=== PATIENT | female | born 1980 | race Caucasian/White ===

== ENCOUNTER 2022-07-18 09:19 | Emergency (ER) | payer MEDICAID ==
[~2022-07-18] VITALS: Ht 170.2 cm; Wt 89.4 kg
[2022-07-18 09:30] VITALS: BP_SYST 122
--- NOTE | 2022-07-18 09:40 | NUR ---
Patient to ER bed 5 to gown for evaluation. Side rails up. Report given to TELLY ESCAMILLA.
--- NOTE | 2022-07-18 09:45 | NUR ---
PT CAME IN FROM HOME C/O LOWER BACK PAIN AFTER USING THE TOILET. PT STATES THAT SHE IS SUPPOSED TO HAVE SURGERY BUT HAS NOT BEEN ABLE TO. PT IS AMBULATORY, AOX4, VSS
--- NOTE | 2022-07-18 10:02 | NUR ---
ER DR. MENJIVAR EXAMINING PT AT THE BEDSIDE
[2022-07-18] MEDS ORDERED: DIAZEPAM 5 MG TABLET (VALIUM) PO ONE (10:15)
[2022-07-18] MEDS ORDERED: KETOROLAC TROMETHAMINE 60 MG/2 ML VIAL IM ONE (10:15)
--- NOTE | 2022-07-18 11:15 | NUR ---
REPORT GIVEN TO ANDI MILNER AND ANDI GANDHI FOR CONTINUING CARE
[2022-07-18] MEDS ORDERED: NAPR-688 PO (11:27)
[2022-07-18] MEDS ORDERED: VAL2 PO (11:27)
--- NOTE | 2022-07-18 11:33 | NUR ---
Patient given written and verbal discharge instructions and verbalizes understanding. ER MD discussed with patient the results and treatment provided. Patient in stable condition. ID arm band removed. Rx of Valium and Naproxen given. Patient educated on pain management and to follow up with PMD. Opportunity for questions provided and answered. Medication side effect fact sheet provided.
[2022-07-18 11:58] VITALS: BP_SYST 122
== END 2022-07-18 11:58 | disposition home or self-care (01) ==
LOC: SED 09:19
DX: S39.012A Strain of muscle, fascia and tendon of lower back, initial encounter (principal); Z79.899 Other long term (current) drug therapy; X58.XXXA Exposure to other specified factors, initial encounter; Y93.89 Activity, other specified; Y92.89 Other specified places as the place of occurrence of the external cause; Y99.8 Other external cause status
CPT/HCPCS: 99283; 96372; J1885

== ENCOUNTER 2022-07-26 12:12 | Emergency (ER) | payer MEDICAID ==
[~2022-07-26] VITALS: Ht 172.7 cm; Wt 88.5 kg
[~2022-07-26 12:12] MED LIST: NAPR-688 PO; VAL2 PO
[2022-07-26 12:15] VITALS: BP_SYST 140
--- NOTE | 2022-07-26 12:15 | NUR ---
Patient triaged and placed in waiting room. VSS and patient appears in no acute distress at this time. Accompanied by FAMILY, awaiting available bed, and MD notified of need for MSE.
--- NOTE | 2022-07-26 12:30 | NUR ---
PT STATES SHE HAS CHRONIC BACK ISSUES AND NOW PAIN HAS BECOME UNBEARABLE. PT WAS HERE ON 07/18 FOR SAME. PT STATES INCREASED PAIN WITH ANY MOVEMENTS
--- NOTE | 2022-07-26 12:46 | NUR ---
BROUGHT BACK TO BED #5 AND WILL ASSUME CARE
--- NOTE | 2022-07-26 13:18 | NUR ---
REPORT GIVEN TO MIRIAN TO ASSUME CARE
--- NOTE | 2022-07-26 13:40 | NUR ---
Patient reports back pain 10 years ago. Patient fell off ladder "a few days ago" and she was decorating her nephew's libertarian. Patient explained that ladder was 6 feet tall two weeks ago. Patient denies losing consciousness but patient got up. Patient took three aleve that day for back pain. Patient took pain medication muscle relaxer valium for nerves. Patient has high BP, pre-ecclampsia when she was .
[2022-07-26] MEDS ORDERED: KETOROLAC TROMETHAMINE 30 MG VIAL IM ONE (14:15)
--- NOTE | 2022-07-26 15:14 | NUR ---
Patient went to scan and came back. No distress noted.
[2022-07-26 15:24] LABS: BILIRUBIN,URINE NEGATIVE (NEGATIVE); BLOOD, URINE NEGATIVE (NEGATIVE); CLARITY/URINE CLEAR (CLEAR); COLOR,URINE YELLOW (YELLOW); GLUCOSE,URINE NEGATIVE (NEGATIVE); KETONES,URINE NEGATIVE (NEGATIVE); LEUKOCYTE ESTERASE ,URINE 1+ (NEGATIVE); NITRITE, URINE NEGATIVE (NEGATIVE); PROTEIN URINE NEGATIVE (NEGATIVE); UROBILINOGEN,URINE 0.2 (0.2-1.0)
[2022-07-26] MEDS ORDERED: SOM350 PO (15:37)
[2022-07-26] MEDS ORDERED: IBUP-1969 PO (15:37)
[2022-07-26 15:47] LABS: BACTERIA,URINE RARE /HPF (None Seen)
[2022-07-26 15:48] LABS: MUCUS,URINE None Seen /LPF (None Seen); RBC,URINE NONE SEEN /HPF (0-3)
[2022-07-26 16:27] VITALS: BP_SYST 120
--- NOTE | 2022-07-26 16:31 | NUR ---
Patient given written and verbal discharge instructions and verbalizes understanding. ER MD discussed with patient the results and treatment provided. Patient in stable condition. ID arm band removed. IV catheter removed intact and dressing applied, no active bleeding. Rx of soma given. Patient educated on pain management and to follow up with PMD. Pain Scale . Opportunity for questions provided and answered. Medication side effect fact sheet provided.
== END 2022-07-26 16:31 | disposition home or self-care (01) ==
LOC: SED 12:12
DX: M54.50 Low back pain, unspecified (principal); G89.29 Other chronic pain; I10 Essential (primary) hypertension; Z79.899 Other long term (current) drug therapy
CPT/HCPCS: 99285; 81000; 93005; 72100; 81025; 96372; J1885

== ENCOUNTER 2022-07-29 08:47 | Emergency (ER) | payer MEDICAID ==
[~2022-07-29] VITALS: Ht 172.7 cm; Wt 87.1 kg
[~2022-07-29 08:47] MED LIST changes: +IBUP-1969 PO; +SOM350 PO
[2022-07-29 08:58] VITALS: BP_SYST 147
--- NOTE | 2022-07-29 09:20 | NUR ---
Pt brought by self ,A&Ox4, pt presents to ER with cough and congestion, VSS, pt requesting a Z-pack, afebrile, respirations even and unlabored, will cont to monitor.
--- NOTE | 2022-07-29 09:28 | NUR ---
Dr Reese evaluating patient in the triage room
[2022-07-29] MEDS ORDERED: ZIT250 PO (09:33)
[2022-07-29 09:45] VITALS: BP_SYST 142
--- NOTE | 2022-07-29 09:46 | NUR ---
Patient given written and verbal discharge instructions and verbalizes understanding. ER MD discussed with patient the results and treatment provided. Patient in stable condition. ID arm band removed. Rx of Zithromax given. Patient educated on pain management and to follow up with PMD. Pain Scale 2/10 Opportunity for questions provided and answered. Medication side effect fact sheet provided.
== END 2022-07-29 09:46 | disposition home or self-care (01) ==
LOC: SED 08:47
DX: J40 Bronchitis, not specified as acute or chronic (principal); R05.9 Cough, unspecified; Z79.899 Other long term (current) drug therapy
CPT/HCPCS: 99283

== ENCOUNTER 2022-09-05 08:34 | Emergency (ER) | payer MEDICAID ==
[~2022-09-05] VITALS: Ht 170.2 cm; Wt 81.6 kg
[~2022-09-05 08:34] MED LIST changes: +ZIT250 PO
[2022-09-05 08:42] VITALS: BP_SYST 121
--- NOTE | 2022-09-05 08:42 | NUR ---
Patient triaged and placed in waiting room. VSS and patient appears in no acute distress at this time. Accompanied by SELF, awaiting available bed, and MD notified of need for MSE.
--- NOTE | 2022-09-05 08:45 | NUR ---
ER DR. MENJIVAR EXAMINING PT IN TRIAGE
[2022-09-05] MEDS ORDERED: PRO20 PO (08:56)
[2022-09-05] MEDS ORDERED: VAL2 PO ×2 (08:56→09:01)
[2022-09-05 09:06] VITALS: BP_SYST 121
--- NOTE | 2022-09-05 09:06 | NUR ---
Patient given written and verbal discharge instructions and verbalizes understanding. ER MD discussed with patient the results and treatment provided. Patient in stable condition. ID arm band removed. Rx of PROZAC AND VALIUM given. Patient educated on pain management and to follow up with PMD. Pain Scale 0/10. Opportunity for questions provided and answered. Medication side effect fact sheet provided.
== END 2022-09-05 08:45 | disposition home or self-care (01) ==
LOC: SED 08:34
DX: F32.A Depression, unspecified (principal); F41.9 Anxiety disorder, unspecified; Z79.899 Other long term (current) drug therapy
CPT/HCPCS: 99283

== ENCOUNTER 2022-10-26 08:16 | Emergency (ER) | payer MEDICAID ==
[~2022-10-26] VITALS: Ht 172.7 cm; Wt 90.7 kg
[~2022-10-26 08:16] MED LIST changes: +PRO20 PO
[2022-10-26 08:27] VITALS: BP_SYST 136
[2022-10-26] MEDS ORDERED: ZIT250 PO (09:10)
[2022-10-26] MEDS ORDERED: PRED20TA PO (09:10)
[2022-10-26] MEDS ORDERED: AMLO5TAB4 PO (09:10)
== END 2022-10-26 09:33 | disposition home or self-care (01) ==
LOC: SED 08:16
DX: J40 Bronchitis, not specified as acute or chronic (principal); R05.9 Cough, unspecified; I10 Essential (primary) hypertension; Z79.899 Other long term (current) drug therapy
CPT/HCPCS: 71045; 99283

== ENCOUNTER 2023-07-17 09:44 | Emergency (ER) | payer OTHER, MEDICAID ==
[~2023-07-17] VITALS: Ht 170.2 cm; Wt 84.8 kg
[~2023-07-17 09:44] MED LIST changes: +AMLO5TAB4 PO; +PRED20TA PO
[2023-07-17] MEDS ORDERED: SUMA25TA10 PO ×2 (09:53→12:12)
[2023-07-17 09:55] VITALS: BP_SYST 129; PULSE 81; RESP 18; TEMP 97.8; O2SAT 97
[2023-07-17] MEDS ORDERED: KETOROLAC TROMETHAMINE 60 MG/2 ML VIAL IM ONE (10:30)
[2023-07-17 11:20] LABS: BARBITURATE, URINE NEGATIVE (NEG <=200); BENZODIAZEPINE, URINE POSITIVE (NEG <=150); CANNABINOID, URINE NEGATIVE (NEG <=50); COCAINE, URINE NEGATIVE (NEG <=150); METHAMPHETAMINES SCREEN,URINE NEGATIVE (NEG <=500); OPIATE, URINE NEGATIVE (NEG <=100); PHENCYCLIDINE SCREEN,URINE NEGATIVE (NEG <=25); URINE AMPHETAMINE NEGATIVE (NEG <=500); URINE METHADONE NEGATIVE (NEG <=200); URINE OXYCODONE SCREEN NEGATIVE (NEG <=100); URINE PROPOXYPHENE SCREEN NEGATIVE (NEG <=300)
[2023-07-17 11:21] LABS: UR TRICYCLIC ANTIDEPRESSANTS NEGATIVE (NEG <=300)
[2023-07-17] MEDS ORDERED: SUMAtriptan SUCCINATE 6 MG/0.5 ML VIAL SUBCUT ONE (12:00)
[2023-07-17] MEDS ORDERED: SOM350 PO (12:03)
[2023-07-17] MEDS ORDERED: NAPR-688 PO (12:03)
[2023-07-17] MEDS ORDERED: TRAM50TA2 PO (12:03)
[2023-07-17 12:15] VITALS: BP_SYST 121; PULSE 70; RESP 19; TEMP 98.1; O2SAT 100
== END 2023-07-17 12:15 | disposition home or self-care (01) ==
LOC: SED 09:44
DX: S16.1XXA Strain of muscle, fascia and tendon at neck level, initial encounter (principal); S29.012A Strain of muscle and tendon of back wall of thorax, initial encounter; S39.012A Strain of muscle, fascia and tendon of lower back, initial encounter; S09.90XA Unspecified injury of head, initial encounter; Z79.899 Other long term (current) drug therapy; V89.2XXA Person injured in unspecified motor-vehicle accident, traffic, initial encounter; Y93.89 Activity, other specified; Y92.89 Other specified places as the place of occurrence of the external cause; Y99.8 Other external cause status
CPT/HCPCS: 99285; 70450; 80307; 72072; 72100; 72125; 76376; 81025; 96372; J1885; J3030

== ENCOUNTER 2023-10-30 08:39 | Emergency (ER) | payer MEDICAID ==
[~2023-10-30] VITALS: Ht 170.2 cm; Wt 84.4 kg
[~2023-10-30 08:39] MED LIST changes: +SUMA25TA10 PO; +TRAM50TA2 PO
[2023-10-30 08:50] VITALS: BP_SYST 146; PULSE 115; RESP 18; TEMP 98.5; O2SAT 98
[2023-10-30] MEDS: levoFLOXacin 500 MG TABLET PO ONE (10:50)
[2023-10-30 11:07] LABS: INFLUENZA TYPE A Negative (NEGATIVE); INFLUENZA TYPE B NEGATIVE (NEGATIVE)
[2023-10-30] MEDS ORDERED: LEVO750T64 PO (11:10)
[2023-10-30] MEDS ORDERED: ALBMDI INH (11:10)
[2023-10-30 11:36] VITALS: BP_SYST 133; PULSE 90; RESP 18; TEMP 97.9; O2SAT 96
== END 2023-10-30 11:38 | disposition home or self-care (01) ==
LOC: SED 08:39
DX: J18.9 Pneumonia, unspecified organism (principal); R05.9 Cough, unspecified; R09.81 Nasal congestion; J02.9 Acute pharyngitis, unspecified; Z79.899 Other long term (current) drug therapy; Z20.822 Contact with and (suspected) exposure to COVID-19
CPT/HCPCS: 36415; 71045; 99284

== ENCOUNTER 2023-12-04 12:28 | Emergency (ER) | payer MEDICAID ==
[~2023-12-04] VITALS: Ht 170.2 cm; Wt 73.5 kg
[~2023-12-04 12:28] MED LIST changes: +ALBMDI INH; +LEVO750T64 PO
[2023-12-04 12:32] VITALS: BP_SYST 147; PULSE 88; RESP 18; TEMP 98.9; O2SAT 98
[2023-12-04] MEDS ORDERED: LEVO750T64 PO (15:19)
[2023-12-04] MEDS ORDERED: ALBMDI INH (15:19)
[2023-12-04 16:08] VITALS: BP_SYST 124; PULSE 71; RESP 18; TEMP 97.7; O2SAT 97
== END 2023-12-04 16:08 | disposition home or self-care (01) ==
LOC: SED 12:28
DX: J18.1 Lobar pneumonia, unspecified organism (principal); R05.9 Cough, unspecified; I10 Essential (primary) hypertension; Z79.899 Other long term (current) drug therapy
CPT/HCPCS: 71045; 99283

== ENCOUNTER 2024-04-24 09:54 | Emergency (ER) | payer MEDICAID ==
[~2024-04-24] VITALS: Ht 167.6 cm; Wt 90.7 kg
[2024-04-24 10:02] VITALS: BP_SYST 162; PULSE 85; RESP 18; TEMP 98.3; O2SAT 98
[2024-04-24] MEDS ORDERED: OFLO5DRO6 RIGHT EYE (10:05)
[2024-04-24] MEDS ORDERED: OLOP5DRO20 RIGHT EYE (10:05)
[2024-04-24 10:23] VITALS: BP_SYST 162; PULSE 85; RESP 18; TEMP 98.3; O2SAT 98
== END 2024-04-24 10:24 | disposition home or self-care (01) ==
LOC: SED 09:54
DX: H11.421 Conjunctival edema, right eye (principal); I10 Essential (primary) hypertension; F41.9 Anxiety disorder, unspecified; F32.A Depression, unspecified; Z79.899 Other long term (current) drug therapy; Z79.2 Long term (current) use of antibiotics
CPT/HCPCS: 99283